=== PATIENT | female | born 1965 | race Caucasian/White ===

== ENCOUNTER 2017-11-26 14:14 | Emergency (ER) | payer SELFPAY ==
[2017-11-26] MEDS ORDERED: PROPARACAINE HCL OPTH 15ML BTL OPTH ONE (14:33)
--- NOTE | 2017-11-26 14:46 | Emergency Department Record ---
History of Present Illness - General Chief complaint: Eye Problem Stated complaint: RT EYRE IRRITATION/SWELLING Time Seen by Provider: 11/26/17 14:30 Source: Patient Mode of Arrival: Ambulatory Limitations: No limitations Travel/Exposure to [facility] Within 21 Days of Symptoms: No - History of Present Illness Initial comments: The patient is here due to R eye pain for one day. She does wear contacts and does sleep in them regularly and started having discomfort yesterday morning. The discomfort did worsen during the day and then this AM it became much worse. She then noticed a white film over the eye and her vision deteriorated so she decided to come to the ER. There is no hx of trauma or injury and her Td is UTD. chief complaint: Eye pain Onset/Timin -: Days(s) - Related Data Hx Tetanus Toxoid Vaccination: Yes Year of Tetanus Vaccination: 2013 Home Medications Medication Instructions Recorded Confirmed Last Taken Diphenhydramine HCl [Allergy 25 mg PO PRN 11/26/17 11/26/17 08:00 Relief] L.acidoph,Paracasei, B.lactis 1 each PO 11/26/17 11/26/17 08:00 [Probiotic] Vit B12/Levomefolate/Vit B6/B2 250 mg 11/26/17 11/26/17 08:00 [l-Methyl-Mc Tablet] Allergies Allergy/AdvReac Type Severity Reaction Status Date / Time celecoxib [From Celebrex] Allergy HIVES Verified 11/26/17 14:31 Penicillins AdvReac SWELLING Verified 11/26/17 14:31 (GENERAL) Travel Screening - Travel/Exposure Within Last 30 Days Have you traveled within the last 30 days?: No - Travel/Exposure Within Last Year Have you traveled outside the [place] in the last year?: No - Additonal Travel Details Have you been exposed to anyone with a communicable illness?: No - Travel Symptoms Symptom Screening: None Review of Systems Constitutional: Denies: Chills, Fever Eyes: Reports: Eye discharge, Eye pain ENT: Denies: Congestion Past Medical History - SOCIAL HISTORY Smoking Status: Current every day smoker Alcohol Use: None Drug Use: None - RESPIRATORY Hx Respiratory Disorders: No - CARDIOVASCULAR Hx Cardio Disorders: No - NEURO Hx Neuro Disorders: No - GI Hx GI Disorders: No - Hx Genitourinary Disorders: No - ENDOCRINE Hx Endocrine Disorders: No Hx Diabetes: No Hx Thyroid Disease: No - MUSCULOSKELETAL Hx Musculoskeletal Disorders: Yes Hx Arthritis: Yes Hx Back Injury: Yes Comment:: DJD - PSYCH Hx Psych Problems: No - HEMATOLOGY/ONCOLOGY Hx Hematology/Oncology Disorders: No Family Medical History Any Significant Family History?: Yes Hx Cancer: Mother Hx Diabetes: Father Hx Heart Disease: Father Physical Exam - General General Appearance: Alert, Oriented x3, Cooperative, No acute distress - Head Head exam: Atraumatic, Normocephalic, Normal inspection - Eye Eye exam: Conjunctival injection (3+), EOMI, Periorbital swelling (mild with mild erythema.), Other (There is a white film covering what appears to be an ulcer over the R lateral 1/3rd of the cornea. The ulcer area measures approx. 6x6 mm. There is edema to the cornea and an obvious hypopyon present. The patient is only able to make out light and dark blurred objects with the R eye and cannot see my fingers. ). negative: Normal appearance, PERRL - ENT ENT exam: Normal exam, Mucous membranes moist, Normal external ear exam, Normal orophraynx, TM's normal bilaterally Course Vital Signs 11/26/17 14:21 Temperature 98.1 F Pulse Rate 96 H Respiratory 20 Rate Blood Pressure 135/96 Pulse Ox 97 - Reevaluation(s) Reevaluation #1: I did consult with Dr. Valencia our Opthomologist and he does recommend transfer to [facility] due to the extent of the infection. I did discuss the case with Dr. John who is an attending in the ER there and she does accept the patient in transfer. She would like to hold on any Abx drops so the Opthomology people can get an accurate culture. 11/26/17 14:56 Disposition Disposition: Transfer Clinical Impression: Corneal ulcer of right eye with hypopyon Disposition: Acute Care Hospital Transfer Transfer To: [facility]. Reason For Transfer: Opthomology Accepting Physician: Dr. John. Time Discussed w/Accepting Physician: 15:05 Condition: (2) Stable Forms: Patient Portal Access Time of Disposition: 15:05 Quality - Quality Measures Quality Measures: N/A - Blood Pressure Screening View Details: Yes Does Patient Have Any of the Following: No Blood Pressure Classification: Hypertensive Reading Systolic Measurement: 135 Diastolic Measurement: 96 Screening for High Blood Pressure: < First Hypertensive BP, F/U Documented > [ G8950] First Hypertensive Follow-up Interventions: Referral to alternative/primary care provider.
== END 2017-11-26 15:37 | disposition short-term general hospital (02) ==
LOC: ER 14:14
DX: H16.031 Corneal ulcer with hypopyon, right eye (principal); F17.210 Nicotine dependence, cigarettes, uncomplicated
CPT/HCPCS: 99283; 99284

== ENCOUNTER 2018-12-09 13:54 | Emergency (ER) | payer MEDICAID ==
--- NOTE | 2018-12-09 14:43 | Emergency Department Record ---
History of Present Illness - General Chief complaint: Eye Problem Stated complaint: LT EYE INFECTION Time Seen by Provider: 12/09/18 13:57 Mode of Arrival: Ambulatory - History of Present Illness Initial comments: The patient is here due to L eye pain for 3 days. She slept in her soft contact the day prior to the onset of the pain. She denies any new issues and has a hx of a R eye corneal infection a year ago. She has been followed in the clinic at the [facility] in [place]. chief complaint: Eye pain, Eye redness Onset/Timin -: Days(s) Onset Description: Gradual Location: Left eye Place: Home If Injury: None Eye Symptoms: Burning, Discharge, Foreign body sensation, Pain, Photophobia Severity scale (1-10): 8 If Pain, Quality: Burning Consistency: Constant Associated Symptoms: None Treatments Prior to Arrival: Irrigated eye, Removed contact lens - Related Data With correction: No Hx Tetanus Toxoid Vaccination: Yes Year of Tetanus Vaccination: 2013 Home Medications Medication Instructions Recorded Confirmed Last Taken Timolol Maleate 0.5% 5Ml Btl 1 drop AFFEYE DAILY 12/09/18 12/09/18 Unknown [Timoptic] Allergies Allergy/AdvReac Type Severity Reaction Status Date / Time celecoxib [From Celebrex] Allergy HIVES Verified 11/26/17 14:31 Penicillins AdvReac SWELLING Verified 11/26/17 14:31 (GENERAL) Travel Screening - Travel/Exposure Within Last 30 Days Have you traveled within the last 30 days?: No Review of Systems Constitutional: Denies: Chills, Fever, Other Eyes: Reports: Eye pain, Photophobia ENT: Denies: Congestion Respiratory: Denies: Cough Past Medical History - SOCIAL HISTORY Smoking Status: Current every day smoker - RESPIRATORY Hx Respiratory Disorders: No - CARDIOVASCULAR Hx Cardio Disorders: No - NEURO Hx Neuro Disorders: No - GI Hx GI Disorders: No - Hx Genitourinary Disorders: No - ENDOCRINE Hx Endocrine Disorders: No Hx Diabetes: No Hx Thyroid Disease: No - MUSCULOSKELETAL Hx Musculoskeletal Disorders: Yes Hx Arthritis: Yes Hx Back Injury: Yes Comment:: DJD - PSYCH Hx Psych Problems: No - HEMATOLOGY/ONCOLOGY Hx Hematology/Oncology Disorders: No Family Medical History Any Significant Family History?: Yes Hx Cancer: Mother Hx Diabetes: Father Hx Heart Disease: Father Physical Exam - General General Appearance: Alert, Oriented x3, Cooperative, No acute distress - Head Head exam: Atraumatic, Normocephalic, Normal inspection - Eye Eye exam: PERRL, Conjunctival injection (2+ L eye), EOMI, Other (There is a corneal infiltrate/ early ulcer to the L eye cornea at the 4:00 position.). negative: Normal appearance Visual acuity (L) = 20/: 100 Visual acuity (R) = 20/: 100 With correction: No - ENT ENT exam: Normal exam - Neck Neck exam: Normal inspection, Full ROM. negative: Tenderness Course Vital Signs 12/09/18 14:12 Temperature 97.9 F Pulse Rate 84 Respiratory 20 Rate Blood Pressure 150/77 Pulse Ox 96 - Reevaluation(s) Reevaluation #1: I did discuss the case with Dr. Pat at the [facility] ER and she set the patient up for an appointment at the [facility] at 3:45 today. The patient will have her significant other drive her there. 12/09/18 14:47 Disposition Disposition: Discharge Clinical Impression: Corneal ulcer Qualifiers: Laterality: left Qualified Code(s): H16.002 - Unspecified corneal ulcer, left eye Disposition: Acute Care Hospital Transfer Transfer To: [facility] Reason For Transfer: Opthomology Accepting Physician: Adilia Time Discussed w/Accepting Physician: 14:42 Condition: (2) Stable Instructions: Corneal Ulcer (ED) Additional Instructions: Please proceed directly to the [facility] for evaluation. Forms: Patient Portal Access Time of Disposition: 14:43 Quality - Quality Measures Quality Measures: N/A - Blood Pressure Screening View Details: Yes Does Patient Have Any of the Following: No Blood Pressure Classification: Hypertensive Reading Systolic Measurement: 150 Diastolic Measurement: 77 Screening for High Blood Pressure: < First Hypertensive BP, F/U Documented > [ G8950] First Hypertensive Follow-up Interventions: Referral to alternative/primary care provider.
== END 2018-12-09 15:01 | disposition short-term general hospital (02) ==
LOC: ER 13:54
DX: H16.002 Unspecified corneal ulcer, left eye (principal); F17.210 Nicotine dependence, cigarettes, uncomplicated
CPT/HCPCS: 99283